=== PATIENT | male | born 1965 | race Hispanic/Latino ===

== ENCOUNTER 2023-01-10 10:13 | Emergency (ER) | payer SELFPAY ==
[2023-01-10 10:39] LABS: Absolute Lymphocytes (CBC) 0.9 K/uL (0.7-4.9); Hematocrit 40.7 % (39.6-49.0); Lymphocytes % 6.9 % (15.3-44.8); MCV 82.2 fL (80-100); MPV 7.8 fL (7.6-11.3); Platelets 231 thou/uL (152-406); RBC Red Blood Cell Count 4.94 M/uL (4.33-5.43)
[2023-01-10] MEDS ORDERED: dexAMETHasone 10 MG/ML VIAL ONE (10:42)
[2023-01-10] MEDS ORDERED: NA CHLORIDE 0.9% 1,000 ML ONE (10:42)
[2023-01-10 10:51] LABS: Potassium 3.4 mEq/L (3.5-5.1)
[2023-01-10 11:19] LABS: SARS-CoV-2 Antigen Rapid Res Negative (Negative)
--- NOTE | 2023-01-10 11:52 | RAD REPORT ---
EXAM DESCRIPTION: CT - Soft Tissue Neck W/Contr CLINICAL HISTORY: Sore throat;Swelling COMPARISON: No comparisons TECHNIQUE All CT scans are performed using dose optimization technique as appropriate and may includ e automated exposure control or mA/KV adjustment according to patient size. FINDINGS: There is significant soft tissue swelling involving the in right parapharyngeal soft tissu es with a poorly defined rim enhancing 23 x 19 mm fluid collection noted in the region. A component o f this collection appears to extend inferiorly to the level of the right piriform sinus. There is mas s effect on the piriform sinus with underaeration seen. Multiple enlarged lymph nodes are seen along both jugular chains. Prevertebral soft tissues are not abnormally thickened. IMPRESSION: Significant soft tissue prominence is seen along the right parapharyngeal region with ma ss effect present. There is irregular fluid collection with rim enhancement seen within this abnormal tissue measuring 23 mm. Possibilities would include a peritonsillar abscess related to significant tonsillar enlargement. How ever, the appearance also raises concern for malignancy. Follow-up direct visualization would be dom mmended.
[2023-01-10] MEDS ORDERED: CLINDAMYCIN 600MG/D5W 50 ML IV ONE (12:25)
--- NOTE | 2023-01-10 13:42 | EDPHYS ---
Physician Documentation [facility] Name: Jese Bravo Age: 57 yrs Sex: Male : 1965 Arrival Date: 01/10/2023 Time: 10:13 Bed 2 Private MD: ED Physician Franklin Mata HPI: 01/10 10:19 This 57 yrs old Male presents to ER via Unassigned with complaints of Sore jh7 Throat, Check Pain. 10:19 The patient presents with sore throat, dysphagia, of both solids and liquids. The jh7 patient describes throat pain as burning, constant. Onset: The symptoms/episode began/occurred 2 day(s) ago. Associated signs and symptoms: Pertinent positives: Sore throat R neck swelling, Pertinent negatives chest pain, cough, earache, fever, nausea, shortness of breath, vomiting. Historical: - Allergies: 10:36 No Known Allergies; kc6 - PMHx: 10:36 Cerebrovascular accident; kc6 - PSHx: 10:36 None; kc6 - Immunization history:: Adult Immunizations unknown. - Social history:: Smoking status: Patient denies any tobacco usage or history of. ROS: 10:19 Constitutional: Negative for fever, chills, and weight loss, Eyes: Negative for injury, jh7 pain, redness, and discharge, 10:19 Cardiovascular: Negative for chest pain, palpitations, and edema, Respiratory: Negative for shortness of breath, cough, wheezing, and pleuritic chest pain, Abdomen/GI: Negative for abdominal pain, nausea, vomiting, diarrhea, and constipation, MS/Extremity: Negative for injury and deformity, Skin: Negative for injury, rash, and discoloration, Neuro: Negative for headache, weakness, numbness, tingling, and seizure, 10:19 ENT: Positive for difficulty swallowing, sore throat, 10:19 Neck: Positive for pain with movement, swelling, swollen nodes, tenderness, 10:19 All other systems are negative, Exam: 10:19 Constitutional: This is a well developed, well nourished patient who is awake, alert, jh7 and in no acute distress. Head/Face: Normocephalic, atraumatic. Cardiovascular: Regular rate and rhythm with a normal S1 and S2. No gallops, murmurs, or rubs. Normal PMI, no JVD. No pulse deficits. Respiratory: Lungs have equal breath sounds bilaterally, clear to auscultation and percussion. No rales, rhonchi or wheezes noted. No increased work of breathing, no retractions or nasal flaring. Back: No spinal tenderness. No costovertebral tenderness. Full range of motion. Skin: Warm, dry with normal turgor. Normal color with no rashes, no lesions, and no evidence of cellulitis. MS/ Extremity: Pulses equal, no cyanosis. Neurovascular intact. Full, normal range of motion. Neuro: Awake and alert, GCS 15, oriented to person, place, time, and situation. Motor strength 5/5 in all extremities. Sensory grossly intact. Normal gait. 10:19 ENT: Posterior pharynx: Airway: patent, Uvula: edematous, erythema, swelling, that is mild, erythema, that is moderate, 10:19 Neck: External neck: swelling, that is moderate, of the right submandibular area, Vital Signs: 10:35 BP 148 / 92; Pulse 97; Resp 16 S; Temp 98; Pulse Ox 98% on R/A; kc6 11:10 BP 134 / 78; Pulse 95; Resp 18; Pulse Ox 98% on R/A; mb9 13:57 BP 144 / 86; Pulse 88; Resp 18; Pulse Ox 100% on R/A; mb9 MDM: 10:19 Patient medically screened. [facility] 11:56 ED course: Reviewed CT findings, will consult Dr. Orta.. [facility] 12:33 Management of patient was discussed with the following: Ball Rolling Machine Operator: Dr. Orta, ENT. [facility] Relayed all pertinent information regarding labs and imaging. Dr. Orta stated that she would review the imaging and would get back with me.. 13:23 ED course: Dr. Orta at bedside. [facility] 13:35 Differential diagnosis: group A strep tonsillitis, peritonsillar abscess pharyngitis, [facility] retropharyngeal abcess uvulitis, Malignancy. Data reviewed: vital signs, nurses notes, lab test result(s), radiologic studies, CT scan. I considered the following discharge prescriptions or medication management in the emergency department Medications were administered in the Emergency Department. See MAR. Counseling: I had a detailed discussion with the patient and/or guardian regarding the historical points, exam findings, and any diagnostic results supporting the discharge/admit diagnosis, the need for outpatient follow up, an ENT specialist, to return to the emergency department if symptoms worsen or persist or if there are any questions or concerns that arise at home. Response to treatment: the patient's symptoms have mildly improved after treatment. ED course: Dr. Orta scoped and assessed the patient at bedside. She is concerned for malignancy and advises an outpatient biopsy. She recommended the patient be on a 10-day course of Augmentin and a 10-day prednisone taper.. 01/10 10:26 Order name: BMP; Complete Time: 11:06 7 01/10 10:26 Order name: CBC with Diff; Complete Time: 11:06 7 01/10 10:26 Order name: SARS RAPID; Complete Time: 11:39 7 01/10 10:26 Order name: Flu; Complete Time: 11:15 7 01/10 10:26 Order name: Strep; Complete Time: 07:48 7 01/10 11:15 Order name: Throat Culture; Complete Time: 07:48 EDMS 01/10 10:26 Order name: CT Soft Tissue Neck W/contr; Complete Time: 11:55 [facility] Administered Medications: 10:35 Drug: Decadron - Dexamethasone IVP 10 mg IVP once Route: IVP; Site: right forearm; kc6 11:13 Follow up: Response: No adverse reaction 6 10:35 Drug: NS 0.9% IV 1000 ml IV at 1 bolus Per protocol; 1000 mL bolus Route: IV; Rate: 1 kc6 bolus; Site: right forearm; 12:14 Drug: Clindamycin IVPB 600 mg IVPB once over 30 mins; (mix in 50 mL) Route: IVPB; mb9 Infused Over: 30 mins; Site: right antecubital; Disposition Summary: 01/10/23 13:41 Discharge Ordered Notes: Location: Home [facility] Problem: new [facility] Symptoms: have improved [facility] Condition: Stable [facility] Diagnosis - Right parapharyngeal mass [facility] Followup: [facility] - With: Radha Orta MD - When: 1 - 2 days - Reason: Further diagnostic work-up Discharge Instructions: - Discharge Summary Sheet 7 - Peritonsillar Abscess 7 - Peritonsillar Cellulitis [facility] Forms: - Work release form ll1 - Medication Reconciliation Form 7 - Thank You Letter jh7 - Antibiotic Education jh7 - Patient Portal Instructions 7 - Leadership Thank You Letter jh7 Prescriptions: - Augmentin 875-125 mg Oral Tablet - take 1 tablet ORAL route every 12 hours for 10 days; 20 tablet; Refills: 0, jh7 Product Selection Permitted - Prednisone 20 mg Oral tablet - take 11 tablet ORAL route once daily for 3 days Take 2 tablets once daily for 3 jh7 days, then take 1 tablet once daily for 2 days, then take 0.5 tablets once daily for 5 days.; 13 tablet; Refills: 0, Product Selection Permitted Addendum: 01/15/2023 07:48 I was immediately available for consultation during this patient's visit. I did not e c2 personally see the patient or guide the patient's care.. Signatures: Dispatcher [employer] Ernestina Moon FNP LOG HOOKER jh7 Ladan Stack RN RN kc6 Toya Pickering RN RN mb9 Franklin Maat MD MD ec2
--- NOTE | 2023-01-10 13:42 | ER ---
Nurse's Notes [facility] Name: Jese Bravo Age: 57 yrs Sex: Male : 1965 Arrival Date: 01/10/2023 Time: 10:13 Bed 2 Private MD: Diagnosis: Right parapharyngeal mass Presentation: 01/10 10:35 Chief complaint: Patient states: he has been having sore throat. denies fever or n/v. kc6 Coronavirus screen: At this time, the client does not indicate any symptoms associated with coronavirus-19. Ebola Screen: No symptoms or risks identified at this time. Initial Sepsis Screen: Does the patient meet any 2 criteria? No. Patient's initial sepsis screen is negative. Does the patient have a suspected source of infection? No. Patient's initial sepsis screen is negative. Risk Assessment: Do you want to hurt yourself or someone else? Patient reports no desire to harm self or others. Onset of symptoms was January 10, 2023. 10:35 Method Of Arrival: Ambulatory [facility] 10:35 Acuity: AMANDA 3 kc6 Triage Assessment: 10:37 General: Appears in no apparent distress. comfortable, Behavior is calm, cooperative, kc6 appropriate for age. Pain: Complains of pain in right submandibular area. EENT: Throat is reddened bilaterally with gag reflex present, uvula is enlarged. Neuro: Level of Consciousness is awake, alert, obeys commands, Oriented to person, place, time, situation, Appropriate for age. Cardiovascular: Denies chest pain. Respiratory: Reports shortness of breath Airway is patent Trachea midline Respiratory effort is even, unlabored, Respiratory pattern is regular, symmetrical. GI: No signs and/or symptoms were reported involving the gastrointestinal system. : No signs and/or symptoms were reported regarding the genitourinary system. Derm: No signs and/or symptoms reported regarding the dermatologic system. Skin is intact, is healthy with good turgor, Skin is pink, warm \T\ dry. Musculoskeletal: No signs and/or symptoms reported regarding the musculoskeletal system. Circulation, motion, and sensation intact. Capillary refill < 3 seconds, Range of motion: intact in all extremities. Historical: - Allergies: 10:36 No Known Allergies; kc6 - PMHx: 10:36 Cerebrovascular accident; kc6 - PSHx: 10:36 None; kc6 - Immunization history:: Adult Immunizations unknown. - Social history:: Smoking status: Patient denies any tobacco usage or history of. Screenin:37 [facility] ED Fall Risk Assessment (Adult) History of falling in the last 3 months, kc6 including since admission No falls in past 3 months (0 pts) Confusion or Disorientation No (0 pts) Intoxicated or Sedated No (0 pts) Impaired Gait No (0 pts) Mobility Assist Device Used No (0 pt) Altered Elimination No (0 pt) Score/Fall Risk Level 0 - 2 = Low Risk. Abuse screen: Denies threats or abuse. Denies injuries from another. Nutritional screening: No deficits noted. Tuberculosis screening: No symptoms or risk factors identified. Assessment: 10:38 Reassessment: please see triage assessment. kc6 12:15 Reassessment: No changes from previously documented assessment. Patient and/or family mb9 updated on plan of care and expected duration. Pain level reassessed. Patient is alert, oriented x 3, equal unlabored respirations, skin warm/dry/pink. 13:26 Reassessment: Dr. Orta, ENT, at bedside. mb9 13:58 Reassessment: No changes from previously documented assessment. Patient and/or family mb9 updated on plan of care and expected duration. Pain level reassessed. Patient is alert, oriented x 3, equal unlabored respirations, skin warm/dry/pink. Vital Signs: 10:35 BP 148 / 92; Pulse 97; Resp 16 S; Temp 98; Pulse Ox 98% on R/A; kc6 11:10 BP 134 / 78; Pulse 95; Resp 18; Pulse Ox 98% on R/A; mb9 13:57 BP 144 / 86; Pulse 88; Resp 18; Pulse Ox 100% on R/A; mb9 ED Course: 10:17 Patient arrived in ED. mg5 10:19 [facility]ber [facility] jh7 10:19 Franklin Mata MD is Attending Physician. jh7 10:24 Ladan Stack RN is Primary Nurse. kc6 10:28 Arm band placed on Patient placed in an exam room, on a stretcher. ll1 10:36 Triage completed. kc6 10:36 Inserted saline lock: 20 gauge in right forearm, using aseptic technique. Blood kc6 collected. Patient maintains SpO2 saturation greater than 95% on room air. 10:37 Patient has correct armband on for positive identification. Bed in low position. Call kc6 light in reach. Side rails up X 1. Client placed on continuous cardiac and pulse oximetry monitoring. NIBP monitoring applied. 11:04 CT Soft Tissue Neck W/contr In Process Unspecified. EDMS 13:39 Radha Orta MD is Referral Physician. Nolvia 13:58 No provider procedures requiring assistance completed. IV discontinued, intact, mb9 bleeding controlled, No redness/swelling at site. Pressure dressing applied. Administered Medications: 10:35 Drug: Decadron - Dexamethasone IVP 10 mg IVP once Route: IVP; Site: right forearm; kc6 11:13 Follow up: Response: No adverse reaction kc6 10:35 Drug: NS 0.9% IV 1000 ml IV at 1 bolus Per protocol; 1000 mL bolus Route: IV; Rate: 1 kc6 bolus; Site: right forearm; 12:14 Drug: Clindamycin IVPB 600 mg IVPB once over 30 mins; (mix in 50 mL) Route: IVPB; mb9 Infused Over: 30 mins; Site: right antecubital; Medication: 13:26 VIS not applicable for this client. mb9 Outcome: 13:41 Discharge ordered by . 7 13:58 Discharged to home ambulatory, mb9 13:58 Condition: stable 13:58 Discharge instructions given to patient, Instructed on discharge instructions, follow up and referral plans. Demonstrated understanding of instructions, follow-up care, medications, Prescriptions given X 2, 14:01 Patient left the ED. mb9 Signatures: Dispatcher [employer] EDND Vero Perdomo, RN RN 1 Ernestina Gerber, PALAEONTOLOGIST PALAEONTOLOGIST [email or web address] Ladan Stack RN RN kc6 Toya Pickering RN RN [id number] Danielle Ceja mg5
[2023-01-10 14:23] VITALS: TEMP 98
[2023-01-10 14:26] VITALS: BP 144/86; O2SAT 100
--- NOTE | 2023-01-11 18:21 | CON ---
Date of Consultation: 01/10/2023 History Of Present Illness: The patient is a pleasant 57-year-old male who presents to the emergency room complaining of acute sore throat, dysphagia of both solids and liquids that started last week, but significantly worsened 2 days ago. He states that he drank a large amount of very cold water and he noticed the next day that his right-sided neck and throat began to swell. With the exception of sore throat and right neck swelling, he denies dyspnea, chest pain, vomiting, cough, earache, fever, nausea, or other ENT complaints today. Past Medical History: Cerebrovascular accident. Past Surgical History: None. Allergies: NO KNOWN DRUG ALLERGIES. Social History: Patient denies any alcohol, tobacco, or illicit drugs, and he lives at home. Psychosocial History: Patient lives at home with family. Medications: None. Review of Systems: Constitutional: Negative for fever, chills, weight loss. Eyes: Negative for drainage, blurry or double vision or redness. Ears: Negative for otorrhea, otalgia or hearing loss. Nose: Negative for rhinorrhea, postnasal drip or nasal congestion. Throat: Positive for dysphagia and sore throat. Neck: Positive for right-sided neck swelling. Mild pain. Physical Examination: Vital Signs: Stable. General: The patient is awake, alert, oriented to person, place, and time and he is in no acute distress. Head: Atraumatic, normocephalic. Eyes: PERRLA/EOMI. Ears: Bilateral cerumen, but tympanic membranes intact. No evidence of middle ear effusion. Nose: Midline septum and moist intranasal mucosa. No exudate. Throat: Palpation of the oropharynx did not demonstrate any palpable abscess. The mucosa is normal, pink. It is redundant with a Robledo type III palate, but no evidence of infection seen. Examination of the tongue and oropharynx and oral cavity also did not elicit any source of potential malignancy. Neck: Diffuse right-sided neck swelling and enlarged lymph nodes. The patient has significant right level 1 submandibular triangle swelling . Trachea is midline. After obtaining consent, patient was placed into a sitting position. A flexible laryngoscope was introduced into the right nasal cavity and advanced along the floor back to the level of the larynx. There was diffuse mucosal swelling noted of the right hypopharynx and larynx. A and complete right vocal cord paralysis which is distinctly visualized upon phonation at lower pitches and then scaling up to higher pitches. There is no evidence of discrete mucosal lesion or lesion of the vocal cord proper. The patient's airway is patent. There is no evidence of subglottic stenosis. The scope was then withdrawn to the level of the oropharynx. I did not see any evidence of vallecular or epiglottic or base of tongue mucosal lesion. The scope was then withdrawn to the level of the nasopharynx. Eustachian tube orifices were intact. Nasopharynx intact with no evidence of discrete mucosal lesion. The scope was completely withdrawn. The patient tolerated the procedure well. CT scan of soft tissue neck with contrast was performed which demonstrated significant soft tissue prominence seen along the right parapharyngeal region with mass effect present with an irregular fluid collection. After reviewing the films myself, I feel that malignancy could potentially be more likely. This patient has significant soft tissue edema. The patient can have inflammatory component of a malignancy in this area. Diagnoses: 1. Complete right true vocal cord paralysis. 2. Right upper level I neck soft tissue-- suspected neoplasm, possible origin is the right submandibular gland. Recommendations: We will start Augmentin and prednisone and he will follow up in my clinic in 2 weeks for reexamination and next steps which will most likely to include a biopsy. ALYCE/FERNANDO Voice ID: [id number] Report ID: [id number] MTDD
== END 2023-01-10 14:01 | disposition home or self-care (01) ==
LOC: ER 10:13
DX: J39.0 Retropharyngeal and parapharyngeal abscess (principal); J38.00 Paralysis of vocal cords and larynx, unspecified; Z86.73 Personal history of transient ischemic attack (TIA), and cerebral infarction without residual deficits
CPT/HCPCS: 36415; 70491; 80048; 85025; 87070; 87081; 87804; 87811; 99285; J1100; J7030; Q9967